=== PATIENT | male | born 1965 | race African-American/Black ===

== ENCOUNTER 2019-04-21 13:47 | Emergency (ER) | payer BC ==
[2019-04-21] MEDS ORDERED: Bacitracin Oint 1 GM U/D Packet TOP ONE (13:48)
[2019-04-21] MEDS ORDERED: Diphtheria,Pertussis(Acell),Tetanus Vaccine 0.5 ML Syringe IM ONE (13:48)
--- NOTE | 2019-04-21 14:55 | EDM.PDOC ---
ED HPI GENERAL MEDICAL PROBLEM - General Chief Complaint: Laceration Stated Complaint: FINGER LACERATION Time Seen by Provider: 04/21/19 13:57 Source of Information: Reports: Patient History Limitations: Reports: No Limitations - History of Present Illness INITIAL COMMENTS - FREE TEXT/NARRATIVE: HISTORY AND PHYSICAL: History of present illness: Patient is a 54-year-old male who presents to the emergency room with complaints of a laceration to the webspace between his thumb and index finger on his right hand. He states he cut his hand using a razor blade. Unsure of his last tetanus update. Denies any other extremity involvement. Review of systems: As per history of present illness and below otherwise all systems reviewed and negative. Past medical history: As per history of present illness and as reviewed below otherwise noncontributory. Surgical history: As per history of present illness and as reviewed below otherwise noncontributory. Social history: See social history for further information Family history: As per history of present illness and as reviewed below otherwise noncontributory. Physical exam: General: Developed and well-nourished 54-year-old -[place] male. Alert and oriented. Nontoxic-appearing and in no acute distress. HEENT: Atraumatic, normocephalic, pupils equal and reactive bilaterally, negative for conjunctival pallor or scleral icterus, mucous membranes moist, trachea midline. No drooling or trismus noted. No meningeal signs. No hot potato voice noted. Lungs: Clear to auscultation, breath sounds equal bilaterally. Heart: S1S2, regular rate and rhythm without overt murmur Abdomen: Soft, nondistended, nontender. Skin: 1.5 x 1.7 5 "V shaped" laceration to the webspace of the first and second digit on the right hand. Intact, warm, dry. No lesions or rashes noted. Extremities: See skin for details, has no tendon/neuro involvement, moves all extremities per self without difficulty or deficits, negative for cords or calf pain. Neurovascular unremarkable. Neuro: Awake, alert, oriented. Cranial nerves II through XII unremarkable. Cerebellum unremarkable. Motor and sensory unremarkable throughout. Exam nonfocal. Notes: 1% lidocaine was used to anesthetize the area. Wound wash and chlorhexidine were used for cleansing and thorough irrigation. Usual and customary procedures were followed for suture placement. 4-0 nylon, #3 interrupted sutures were placed. Patient tolerated well. Tetanus was updated. Bacitracin nonstick dressing applied. Supportive care measures were reviewed and discussed. Voices understanding and is agreeable to plan of care. Denies any further questions or concerns at this time. Diagnostics: None Therapeutics: 1% lidocaine, bacitracin, tetanus Prescription: None Impression: Laceration Plan: 1. Keep the area clean and dry. Continue to monitor for signs of infection. Sutures to be removed in 7-10 days. 2. Tylenol and/or ibuprofen as needed for pain management. 3. Please follow-up with your primary care provider in the next 1-2 days. Return to the ED as needed and as discussed. Definitive disposition and diagnosis as appropriate pending reevaluation and review of above. laceration Pain Score (Numeric/FACES): 4 - Related Data Allergies Allergy/AdvReac Type Severity Reaction Status Date / Time No Known Allergies Allergy Verified 04/21/19 14:07 Home Meds: Home Meds . [No Known Home Meds] 03/25/14 [History] Past Medical History - Past Health History Medical/Surgical History: Denies Medical/Surgical History HEENT History: Reports: None Cardiovascular History: Reports: None Respiratory History: Reports: None Gastrointestinal History: Reports: None Genitourinary History: Reports: None Musculoskeletal History: Reports: None Neurological History: Reports: None Psychiatric History: Reports: None Endocrine/Metabolic History: Reports: None Hematologic History: Reports: None Oncologic (Cancer) History: Reports: None Dermatologic History: Reports: Psoriasis - Infectious Disease History Infectious Disease History: Reports: Chicken Pox Social & Family History - Family History Family Medical History: Noncontributory - Tobacco Use Smoking Status *Q: Current Every Day Smoker Years of Tobacco use: 2 Packs/Tins Daily: 0.5 - Caffeine Use Caffeine Use: Reports: Soda - Alcohol Use Days Per Week of Alcohol Use: 4 Number of Drinks Per Day: 3 Total Drinks Per Week: 12 - Recreational Drug Use Recreational Drug Use: No ED ROS GENERAL - Review of Systems Review Of Systems: Comprehensive ROS is negative, except as noted in HPI. ED EXAM, SKIN/RASH Exam: See Below (See dictation) ED SKIN PROCEDURES - Laceration/Wound Repair Right hand Appearance: Subcutaneous, Linear, Clean Distal NVT: Neuro & Vascular Intact, No Tendon Injury Anesthetic Type: Local Local Anesthesia - Lidocaine (Xylocaine): 1% Plain Local Anesthetic Volume: 4cc Skin Prep: Chlorhexidine (Hibiciens), Saline, Sterile Drape Saline Irrigation (cc's): 50 Exploration/Debridement/Repair: Wound Explored, In a Bloodless Field, Explored to Base, No Foreign Material Found Closed with: Sutures Lac/Wound length In cm: 1.5 (1.5 x 1.75cm) Suture Size: 4-0 # of Sutures: 3 Suture Type: Nylon, Interrupted, Simple Drain Placement: No Sterile Dressing Applied: Provider Tetanus Status Addressed: Yes Complications: No Course - Vital Signs Last Recorded V/S: Last Vital Signs Temp 97 F 04/21/19 14:05 Pulse 76 04/21/19 14:05 Resp 18 04/21/19 14:05 BP 156/93 H 04/21/19 14:05 Pulse Ox 96 04/21/19 14:05 - Orders/Labs/Meds Orders: Active Orders 24 hr Category Date Time Status Vaccines to be Administered [RC] PER UNIT ROUTINE Care 04/21/19 13:48 Active Meds: Medications Discontinued Medications Generic Name Dose Route Start Last Admin Trade Name Freq PRN Reason Stop Dose Admin Bacitracin 1 dose 04/21/19 13:48 Bacitracin Oint 1 Gm TOP 04/21/19 13:49 ONETIME ONE Diphtheria/Tetanus/Acell Pertussis 0.5 ml 04/21/19 13:48 Adacel IM 04/21/19 13:49 .ONCE ONE Lidocaine HCl 5 ml 04/21/19 13:48 Xylocaine-Mpf 1% INJECT 04/21/19 13:49 ONETIME ONE Departure - Departure Time of Disposition: 14:54 Disposition: Home, Self-Care 01 Clinical Impression: Laceration - Discharge Information Instructions: Laceration Care, Adult, [id number] Referrals: PCP,None [Primary Care Provider] - Forms: ED Department Discharge Additional Instructions: The following information is given to patients seen in the emergency department who are being discharged to home. This information is to outline your options for follow-up care. We provide all patients seen in our emergency department with a follow-up referral. The need for follow-up, as well as the timing and circumstances, are variable depending upon the specifics of your emergency department visit. If you don't have a primary care physician on staff, we will provide you with a referral. We always advise you to contact your personal physician following an emergency department visit to inform them of the circumstance of the visit and for follow-up with them and/or the need for any referrals to a consulting specialist. The emergency department will also refer you to a specialist when appropriate. This referral assures that you have the opportunity for follow-up care with a specialist. All of these measure are taken in an effort to provide you with optimal care, which includes your follow-up. Under all circumstances we always encourage you to contact your private physician who remains a resource for coordinating your care. When calling for follow-up care, please make the office aware that this follow-up is from your recent emergency room visit. If for any reason you are refused follow-up, please contact the [facility] Emergency Department at and asked to speak to the emergency department charge nurse. [facility] [address] [place] [id number] [facility] [address] [place] [address] 1. Keep the area clean and dry. Continue to monitor for signs of infection. Sutures to be removed in 7-10 days. 2. Tylenol and/or ibuprofen as needed for pain management. 3. Please follow-up with your primary care provider in the next 1-2 days. Return to the ED as needed and as discussed. Sepsis Event Note - Evaluation Sepsis Screening Result: No Definite Risk - Focused Exam Vital Signs: Vital Signs Temp Pulse Resp BP Pulse Ox 04/21/19 14:05 97 F 76 18 156/93 H 96 Date Exam was Performed: 04/21/19 Time Exam was Performed: 14:57 - My Orders Last 24 Hours: My Active Orders 04/21/19 13:48 Vaccines to be Administered [RC] PER UNIT ROUTINE - Assessment/Plan Last 24 Hours: My Active Orders 04/21/19 13:48 Vaccines to be Administered [RC] PER UNIT ROUTINE
[2019-04-21 15:55] VITALS: BP 127/94; PULSE 71
== END 2019-04-21 15:17 | disposition home or self-care (01) ==
LOC: MW.ED 13:47
DX: S61.411A Laceration without foreign body of right hand, initial encounter (principal); Z23 Encounter for immunization; F17.210 Nicotine dependence, cigarettes, uncomplicated; W26.8XXA Contact with other sharp object(s), not elsewhere classified, initial encounter
CPT/HCPCS: 12001; 90471; 90715; 99282; J2001

== ENCOUNTER 2019-04-30 10:21 | Emergency (ER) | payer BC ==
[2019-04-30 10:32] VITALS: BP 155/86; PULSE 80
== END 2019-04-30 10:34 | disposition left against medical advice (07) ==
LOC: MW.ED 10:21
DX: Z53.21 Procedure and treatment not carried out due to patient leaving prior to being seen by health care provider (principal)

== ENCOUNTER 2020-07-21 08:32 | Emergency (ER) | payer BC ==
[2020-07-21] MEDS ORDERED: Sodium Chloride 0.9% 10 ML Syringe FLUSH PRN (09:00)
[2020-07-21] MEDS ORDERED: Ondansetron 4 MG/2 ML SDV IVPUSH ONE (09:00)
[2020-07-21] MEDS ORDERED: Sodium Chloride 0.9% 2.5 ML Syringe FLUSH PRN (09:00)
[2020-07-21] MEDS ORDERED: Sodium Chloride 0.9% 1,000 ML IV ONE (09:01)
--- NOTE | 2020-07-21 09:03 | EDM.PDOC ---
ED HPI GENERAL MEDICAL PROBLEM - General Chief Complaint: Gastrointestinal Problem Stated Complaint: VOMITTING Time Seen by Provider: 07/21/20 08:47 - History of Present Illness INITIAL COMMENTS - FREE TEXT/NARRATIVE: History of present illness: [] Patient been sick for about 8 to 10 days. He has nausea and vomiting and unable to eat for the last 3 days. He has vomiting for a week every time he tries to eat or drink anything and notes more than 10 times a day. He has liquid stool for 3 days and it is more than 10 times a day. He has a stool every time he tries to take anything by mouth. He has a cramp just before the stool and otherwise no belly pain. He feels hot and had to use an ice pack to his forehead. He also feels like you are passed out when he stands up because he is weak and dizzy. The patient is not diabetic not treated for blood pressure medicines. He does not take any medicine on a daily basis. He is not working at the time but is active and gets around pretty well during the day. Review of systems: As per history of present illness and below otherwise all systems reviewed and negative. Past medical history: As per history of present illness and as reviewed below otherwise noncontrib utory. Surgical history: As per history of present illness and as reviewed below otherwise noncontributory. Social history: No reported history of drug or alcohol abuse. Family history: As per history of present illness and as reviewed below otherwise noncontributory. Physical exam: Constitutional - well developed, well-nourished and in no acute distress HEENT - normocephalic, no evidence of trauma - external nose and mouth normal - no mass in neck and no JVD - mucosae moist EYES - full EOM, PERRL, no icterus - no evidence of inflammation, injection, or drainage Respiratory - no respiratory distress, equal bilateral expansion, lungs clear to auscultation and no abnormal lung sounds Cardiovascular - Regular Rhythm with S1 and S2 appreciated and no murmur, gallop or rub. GI - abdomen soft without distension or organomegaly - normal bowel sounds - no guard or rebound Musculoskeletal no gross deformity of long bones or joints - no tenderness, swelling or edema Neurologic - Alert and oriented times four - CN II-XII grossly intact - motor sensory and coordination symmetrically normal Psychiatric - appropriate mood and affect with normal thought content Hematologic - No petechiae or purpura - mucosa appropriate color and sclera not pale - normal nail bed color and refill Integument - no rash or evidence of trauma - normal turgor Diagnostics: [] Therapeutics: [] Impression: [] Plan: [] Definitive disposition and diagnosis as appropriate pending reevaluation and review of above. - Related Data Allergies Allergy/AdvReac Type Severity Reaction Status Date / Time No Known Allergies Allergy Verified 04/30/19 10:31 Home Meds: Home Meds Azithromycin 500 mg PO DAILY 3 Days #3 tablet 07/21/20 [Rx] Ondansetron [Zofran ODT] 4 mg PO Q6H PRN #10 tab.dis 07/21/20 [Rx] Past Medical History - Past Health History Medical/Surgical History: Denies Medical/Surgical History HEENT History: Reports: None Cardiovascular History: Reports: None Respiratory History: Reports: None Gastrointestinal History: Reports: None Genitourinary History: Reports: None Musculoskeletal History: Reports: None Neurological History: Reports: None Psychiatric History: Reports: None Endocrine/Metabolic History: Reports: None Hematologic History: Reports: None Oncologic (Cancer) History: Reports: None Dermatologic History: Reports: Psoriasis - Infectious Disease History Infectious Disease History: Reports: Chicken Pox Social & Family History - Family History Family Medical History: No Pertinent Family History - Caffeine Use Caffeine Use: Reports: Soda ED ROS GENERAL - Review of Systems Review Of Systems: Comprehensive ROS is negative, except as noted in HPI. ED EXAM, GENERAL - Physical Exam Exam: See Below Free Text/Narrative:: My physical exam is in the HPI Course - Vital Signs Text/Narrative:: 20 3 AM chest x-ray reveals a few increased markings scattered to the right lower lobe. There is no prior for comparison. Heart border and costophrenic angle as well as diaphragm are clearly visible. This may represent an early developing infiltrate. This is my interpretation and radiology is not reported yet. Last Recorded V/S: Last Vital Signs Temp Pulse 71 07/21/20 11:00 Resp 16 07/21/20 11:00 BP 118/62 07/21/20 11:00 Pulse Ox 100 07/21/20 11:00 - Orders/Labs/Meds Orders: Active Orders 24 hr Category Date Time Status Chest 1V Frontal [CR] Stat Exams 07/21/20 09:00 Taken STOOL CULTURE/SHIGA TOXIN [MREF] Stat Lab 07/21/20 11:20 Received Sodium Chloride 0.9% [Saline Flush] Med 07/21/20 09:00 Active 10 ml FLUSH ASDIRECTED PRN Sodium Chloride 0.9% [Saline Flush] Med 07/21/20 09:00 Active 2.5 ml FLUSH ASDIRECTED PRN Saline Lock Insert [OM.PC] Stat Oth 07/21/20 09:00 Ordered Medication Orders Sodium Chloride (Sodium Chloride 0.9% 10 Ml Syringe) 10 ml FLUSH ASDIRECTED PRN PRN Reason: Keep Vein Open Last Admin: 07/21/20 11:08 Dose: 10 ml Documented by: ZACH Sodium Chloride (Sodium Chloride 0.9% 2.5 Ml Syringe) 2.5 ml FLUSH ASDIRECTED PRN PRN Reason: Keep Vein Open Last Admin: 07/21/20 11:08 Dose: 2.5 ml Documented by: ZACH Labs: Laboratory Tests 07/21/20 07/21/20 Range/Units 08:55 08:55 WBC 7.50 (4.0-11.0) K/uL RBC 5.29 (4.50-5.90) M/uL Hgb 17.6 H (13.0-17.0) g/dL Hct 49.1 (38.0-50.0) % MCV 92.8 (80.0-98.0) fL MCH 33.3 H (27.0-32.0) pg MCHC 35.8 (31.0-37.0) g/dL RDW Std Deviation 43.1 (28.0-62.0) fl RDW Coeff of Daniella 13 (11.0-15.0) % Plt Count 126 L (150-400) K/uL MPV 11.00 (7.40-12.00) fL Neut % (Auto) 75.3 (48.0-80.0) % Lymph % (Auto) 17.5 (16.0-40.0) % Cooke % (Auto) 5.6 (0.0-15.0) % Eos % (Auto) 1.6 (0.0-7.0) % Baso % (Auto) 0.0 (0.0-1.5) % Neut # (Auto) 5.7 (1.4-5.7) K/uL Lymph # (Auto) 1.3 (0.6-2.4) K/uL Cooke # (Auto) 0.4 (0.0-0.8) K/uL Eos # (Auto) 0.1 (0.0-0.7) K/uL Baso # (Auto) 0.0 (0.0-0.1) K/uL Nucleated RBC % 0.0 /100WBC Nucleated RBCs # 0 K/uL Sodium 134 L (136-148) mmol/L Potassium 3.6 (3.5-5.1) mmol/L Chloride 101 (98-107) mmol/L Carbon Dioxide 22.6 (21.0-32.0) mmol/L BUN 13 (7.0-18.0) mg/dL Creatinine 1.4 H (0.8-1.3) mg/dL Est Cr Clr Drug Dosing TNP Estimated GFR (MDRD) > 60.0 ml/min Glucose 111 H (74-106) mg/dL Calcium 8.4 L (8.5-10.1) mg/dL Total Bilirubin 0.9 (0.2-1.0) mg/dL AST 37 (15-37) IU/L ALT 66 H (14-63) IU/L Alkaline Phosphatase 81 (46-116) U/L Total Protein 8.6 H (6.4-8.2) g/dL Albumin 4.0 (3.4-5.0) g/dL Globulin 4.6 H (2.6-4.0) g/dL Albumin/Globulin Ratio 0.9 (0.9-1.6) Lipase 65 L (73-393) U/L Meds: Medications Generic Name Dose Route Start Last Admin Trade Name Freq PRN Reason Stop Dose Admin Sodium Chloride 10 ml 07/21/20 09:00 07/21/20 11:08 Sodium Chloride 0.9% 10 Ml Syringe FLUSH 10 ml ASDIRECTED PRN Administration Keep Vein Open Sodium Chloride 2.5 ml 07/21/20 09:00 07/21/20 11:08 Sodium Chloride 0.9% 2.5 Ml Syringe FLUSH 2.5 ml ASDIRECTED PRN Administration Keep Vein Open Discontinued Medications Generic Name Dose Route Start Last Admin Trade Name Freq PRN Reason Stop Dose Admin Sodium Chloride 1,000 mls @ 1,000 mls/hr 07/21/20 09:01 07/21/20 09:00 Normal Saline IV 07/21/20 10:00 1,000 mls/hr .Bolus ONE Administration Ondansetron HCl 4 mg 07/21/20 09:00 07/21/20 09:09 Ondansetron 4 Mg/2 Ml Sdv IVPUSH 07/21/20 09:01 4 mg ONETIME ONE Administration Departure - Departure Time of Disposition: 11:30 Disposition: Home, Self-Care 01 Condition: Good Clinical Impression: Gastroenteritis - Discharge Information Prescriptions: Azithromycin 500 mg PO DAILY 3 Days #3 tablet Ondansetron [Zofran ODT] 4 mg PO Q6H PRN #10 tab.dis PRN Reason: Nausea Instructions: Colitis Referrals: PCP,None [Primary Care Provider] - Forms: ED Department Discharge Additional Instructions: Increase fluids. Culture results should be back in 2 days. Follow-up with your primary doctor or primary care clinic. Return if worse. [facility] - Primary Care [address] [place] [address] [place] [address] The following information is given to patients seen in the emergency department who are being discharged to home. This information is to outline your options for follow-up care. We provide all patients seen in our emergency department with a follow-up referral. The need for follow-up, as well as the timing and circumstances, are variable depending upon the specifics of your emergency department visit. If you don't have a primary care physician on staff, we will provide you with a referral. We always advise you to contact your personal physician following an emergency department visit to inform them of the circumstance of the visit and for follow-up with them and/or the need for any referrals to a consulting specialist. The emergency department will also refer you to a specialist when appropriate. This referral assures that you have the opportunity for follow-up care with a specialist. All of these measure are taken in an effort to provide you with optimal care, which includes your follow-up. Under all circumstances we always encourage you to contact your private physician who remains a resource for coordinating your care. When calling for follow-up care, please make the office aware that this follow-up is from your recent emergency room visit. If for any reason you are refused follow-up, please contact the [facility] Emergency Department at and asked to speak to the emergency department charge nurse. Sepsis Event Note (ED) - Focused Exam Vital Signs: Vital Signs Pulse Resp BP Pulse Ox 07/21/20 11:00 71 16 118/62 100 - My Orders Last 24 Hours: My Active Orders 07/21/20 09:00 Chest 1V Frontal [CR] Stat Sodium Chloride 0.9% [Saline Flush] 10 ml FLUSH ASDIRECTED PRN Sodium Chloride 0.9% [Saline Flush] 2.5 ml FLUSH ASDIRECTED PRN Saline Lock Insert [OM.PC] Stat 07/21/20 11:20 STOOL CULTURE/SHIGA TOXIN [MREF] Stat - Assessment/Plan Last 24 Hours: My Active Orders 07/21/20 09:00 Chest 1V Frontal [CR] Stat Sodium Chloride 0.9% [Saline Flush] 10 ml FLUSH ASDIRECTED PRN Sodium Chloride 0.9% [Saline Flush] 2.5 ml FLUSH ASDIRECTED PRN Saline Lock Insert [OM.PC] Stat 07/21/20 11:20 STOOL CULTURE/SHIGA TOXIN [MREF] Stat
[2020-07-21 09:28] LABS: BLOOD UREA NITROGEN,BUN 13 mg/dL (7.0-18.0); CARBON DIOXIDE,CO2 22.6 mmol/L (21.0-32.0); CHLORIDE,CL 101 mmol/L (98-107); GLUCOSE RANDOM 111 mg/dL (74-106); LIPASE 65 U/L (73-393); POTASSIUM,K 3.6 mmol/L (3.5-5.1); SODIUM,NA 134 mmol/L (136-148)
[2020-07-21 11:41] VITALS: BP 112/70; PULSE 68
--- NOTE | 2020-07-21 13:37 | CR ---
HISTORY: Productive cough. TECHNIQUE: Portable frontal view the chest. COMPARISON: None. FINDINGS: No airspace consolidation. No pleural effusion or pneumothorax. Pulmonary vasculature and cardiomediastinal silhouette are within normal limits. IMPRESSION: No cardiopulmonary abnormality. Dictated by Sarath Moss MD @ 07/21/2020 1:35:[address] Sarath Moss @ Jul 21 2020 1:35PM
== END 2020-07-21 11:40 | disposition home or self-care (01) ==
LOC: MW.ED 08:32
DX: K52.9 Noninfective gastroenteritis and colitis, unspecified (principal)
CPT/HCPCS: 36415; 71045; 80053; 83690; 85025; 87045; 87046; 87449; 87899; 96361; 96374; 99284; J2405; J7030; 99283

== ENCOUNTER 2021-04-30 17:29 | Emergency (ER) | payer BC ==
[2021-04-30] MEDS: Ketorolac 60 MG/2 ML SDV IM ONE (18:56)
[2021-04-30 19:24] VITALS: BP 142/65; PULSE 78
== END 2021-04-30 19:22 | disposition home or self-care (01) ==
LOC: MW.ED 17:29
DX: H66.93 Otitis media, unspecified, bilateral (principal); R51.9 Headache, unspecified
CPT/HCPCS: 70450; 96372; 99284; J1885; 99283

== ENCOUNTER 2021-09-21 11:41 | Emergency (ER) | payer BC ==
[2021-09-21] MEDS: Sodium Chloride 0.9% 2.5 ML Syringe FLUSH PRN ×2 (12:17→14:06)
[2021-09-21] MEDS: Sodium Chloride 0.9% 10 ML Syringe FLUSH PRN ×2 (12:18→14:06)
[2021-09-21 12:49] LABS: CARBON DIOXIDE,CO2 27.2 mmol/L (21.0-32.0); POTASSIUM,K 3.4 mmol/L (3.5-5.1)
[2021-09-21 12:54] LABS: CORONAVIRUS COVID-19 NAA NEGATIVE (NEGATIVE); INFLUENZA A NAA NEGATIVE (NEGATIVE); INFLUENZA B NAA NEGATIVE (NEGATIVE)
[2021-09-21] MEDS ORDERED: Sodium Chloride 0.9% 1,000 ML IV ONE (13:02)
[2021-09-21] MEDS ORDERED: Iopamidol 755 MG/ML 500 ML Multipack Bottle IVPUSH STA (14:09)
[2021-09-21] MEDS ORDERED: Azithromycin 250 MG Tab PO STA (14:31)
[2021-09-21] MEDS ORDERED: Potassium Chloride 20 MEQ Tab.ER PO ONE (14:31)
[2021-09-21] MEDS ORDERED: methylPREDNISolone Sodium Succinate 125 MG/2 ML SDV IVPUSH ONE (14:41)
[2021-09-21 15:44] VITALS: BP 153/93; PULSE 56
== END 2021-09-21 15:46 | disposition home or self-care (01) ==
LOC: MW.ED 11:41
DX: J40 Bronchitis, not specified as acute or chronic (principal); Z20.822 Contact with and (suspected) exposure to COVID-19
CPT/HCPCS: 0240U; 36415; 71045; 71275; 80053; 83880; 84484; 85025; 85379; 87651; 93005; 96361; 96374; 99285; A9270; J2930; J3490; J7030; Q9967; 99284

== ENCOUNTER 2021-10-04 10:11 | Emergency (ER) | payer BC ==
[2021-10-04 11:15] VITALS: BP 123/77; PULSE 79
== END 2021-10-04 11:41 | disposition home or self-care (01) ==
LOC: MW.ED 10:11
DX: M25.571 Pain in right ankle and joints of right foot (principal); Z79.899 Other long term (current) drug therapy
CPT/HCPCS: 73610-26-RT; 73610-RT; 99283

== ENCOUNTER 2022-01-21 10:05 | Emergency (ER) | payer BC ==
[2022-01-21 12:01] LABS: CORONAVIRUS COVID-19 NAA NEGATIVE (NEGATIVE); INFLUENZA A NAA NEGATIVE (NEGATIVE); INFLUENZA B NAA NEGATIVE (NEGATIVE)
[2022-01-21] MEDS ORDERED: Albuterol/Ipratropium 3.0-0.5 MG/3 ML Neb Soln ONE (13:11)
[2022-01-21] MEDS ORDERED: Albuterol/Ipratropium 3.0-0.5 MG/3 ML Neb Soln NEB ONE (13:15)
[2022-01-21 14:16] LABS: CARBON DIOXIDE,CO2 22.8 mmol/L (21.0-32.0); POTASSIUM,K 3.6 mmol/L (3.5-5.1)
[2022-01-21 14:58] VITALS: BP 139/87; PULSE 84
== END 2022-01-21 14:58 | disposition home or self-care (01) ==
LOC: MW.ED 10:05
DX: J98.8 Other specified respiratory disorders (principal); R06.2 Wheezing; Z72.0 Tobacco use; Z20.822 Contact with and (suspected) exposure to COVID-19
CPT/HCPCS: 0240U; 36415; 71046; 80053; 85007; 85027; 94640; 99284; J7620-GY

== ENCOUNTER 2022-02-18 16:13 | Emergency (ER) | payer BC ==
[2022-02-18 16:46] VITALS: BP 166/96
[2022-02-18] MEDS ORDERED: Acetaminophen/HYDROcodone 325-5 MG Tab PO ONE (17:29)
[2022-02-18 17:51] VITALS: PULSE 83
== END 2022-02-18 17:51 | disposition home or self-care (01) ==
LOC: MW.ED 16:13
DX: M25.571 Pain in right ankle and joints of right foot (principal); Z72.0 Tobacco use
CPT/HCPCS: 99283; A9270

== ENCOUNTER 2022-05-21 07:14 | Emergency (ER) | payer BC ==
[2022-05-21 07:36] VITALS: BP 128/83; PULSE 71
[2022-05-21] MEDS ORDERED: Acetaminophen/oxyCODONE 325-5 MG Tab PO ONE (07:38)
[2022-05-21] MEDS ORDERED: Ketorolac 30 MG/ML SDV IM ONE (07:38)
[2022-05-21] MEDS ORDERED: predniSONE 20 MG Tab PO ONE (07:38)
== END 2022-05-21 08:27 | disposition home or self-care (01) ==
LOC: MW.ED 07:14
DX: M10.9 Gout, unspecified (principal); Z87.891 Personal history of nicotine dependence
CPT/HCPCS: 73130; 96372; 99283; A9270; J1885

== ENCOUNTER 2022-05-30 21:16 | Emergency (ER) | payer BC, OTHER ==
[2022-05-30 21:51] VITALS: BP 105/63; PULSE 61
== END 2022-05-30 21:51 | disposition home or self-care (01) ==
LOC: MW.ED 21:16
DX: Z02.89 Encounter for other administrative examinations (principal)
CPT/HCPCS: 99282

== ENCOUNTER 2022-07-07 20:11 | Emergency (ER) | payer BC ==
[2022-07-07] MEDS ORDERED: Lidocaine 1% PF 2 ML SDV INJECT ONE (20:18)
[2022-07-07] MEDS ORDERED: Acetaminophen/HYDROcodone 325-5 MG Tab PO ONE (20:34)
[2022-07-07] MEDS ORDERED: Amoxicillin/Clavulanate K 875-125 MG Tab PO ONE (20:34)
[2022-07-07 21:05] VITALS: BP 137/87; PULSE 77
== END 2022-07-07 20:46 | disposition home or self-care (01) ==
LOC: MW.ED 20:11
DX: S01.511A Laceration without foreign body of lip, initial encounter (principal); W01.0XXA Fall on same level from slipping, tripping and stumbling without subsequent striking against object, initial encounter
CPT/HCPCS: 12011; 99282; A9270; 99283; J3490

== ENCOUNTER 2022-07-21 10:43 | Emergency (ER) | payer BC ==
[2022-07-21] MEDS ORDERED: Acetaminophen/HYDROcodone 325-5 MG Tab PO ONE ×2 (12:23→14:56)
[2022-07-21 15:18] VITALS: BP 139/77; PULSE 71
== END 2022-07-21 15:17 | disposition home or self-care (01) ==
LOC: MW.ED 10:43
DX: M10.9 Gout, unspecified (principal)
CPT/HCPCS: 93971; 99283; A9270

== ENCOUNTER 2022-08-08 10:06 | Emergency (ER) | payer BC ==
[2022-08-08] MEDS ORDERED: Ondansetron 4 MG/2 ML SDV IVPUSH STA (11:11)
[2022-08-08] MEDS ORDERED: Sodium Chloride 0.9% 1,000 ML IV STA ×2 (11:11→12:02)
[2022-08-08 11:20] LABS: BASOPHILS PERCENT AUTO 0.2 % (0.0-1.5); EOSINOPHILS ABSOLUTE AUTO 0.1 K/uL (0.0-0.7); EOSINOPHILS PERCENT AUTO 1.9 % (0.0-7.0); HEMATOCRIT 41.8 % (38.0-50.0); HEMOGLOBIN 14.8 g/dL (13.0-17.0); LYMPHOCYTES ABSOLUTE AUTO 0.6 K/uL (0.6-2.4); LYMPHOCYTES PERCENT AUTO 11.2 % (16.0-40.0); MEAN CORPUSCULAR HGB CONC 35.4 g/dL (31.0-37.0); MEAN CORPUSCULAR VOLUME 90.5 fL (80.0-98.0); MONOCYTES ABSOLUTE AUTO 0.5 K/uL (0.0-0.8); MONOCYTES PERCENT AUTO 9.1 % (0.0-15.0); NEUTROPHILS ABSOLUTE AUTO 4.1 K/uL (1.4-5.7); NEUTROPHILS PERCENT AUTO 77.6 % (48.0-80.0); NRBC ABSOLUTE 0 K/uL; PLATELET COUNT,PLT 114 K/uL (150-400); RED BLOOD CELL COUNT 4.62 M/uL (4.50-5.90); WHITE BLOOD CELL COUNT,WBC 5.25 K/uL (4.0-11.0)
[2022-08-08 11:40] LABS: A/G RATIO 0.9 (0.9-1.6); ALBUMIN 3.7 g/dL (3.4-5.0); BILIRUBIN TOTAL 0.9 mg/dL (0.2-1.0); CALCIUM 8.8 mg/dL (8.5-10.1); CARBON DIOXIDE,CO2 25.3 mmol/L (21.0-32.0); EST CRCL DRUG DOSING (CG) 87.85 mL/min; POTASSIUM,K 3.4 mmol/L (3.5-5.1); PROTEIN TOTAL,TP 7.6 g/dL (6.4-8.2)
[2022-08-08 13:19] VITALS: BP 151/88; PULSE 67
== END 2022-08-08 13:13 | disposition home or self-care (01) ==
LOC: MW.ED 10:06
DX: A08.4 Viral intestinal infection, unspecified (principal)
CPT/HCPCS: 36415; 80053; 83690; 85025; 96361; 96374; 99284; J2405; J7030

== ENCOUNTER 2023-06-10 15:47 | Emergency (ER) | payer BC ==
[2023-06-10] MEDS: Amoxicillin/Clavulanate K 875-125 MG Tab PO ONE (17:19)
[2023-06-10] MEDS: Ketorolac 30 MG/ML SDV IM ONE (17:20)
[2023-06-10] MEDS: Lidocaine 2% Viscous Solution 15 ML UD PO ONE (17:20)
[2023-06-10] MEDS: Benzocaine 20% Topical Spray UD MUCMEM ONE (17:20)
[2023-06-10 19:11] VITALS: BP 147/82; PULSE 71
== END 2023-06-10 17:54 | disposition home or self-care (01) ==
LOC: MW.ED 15:47
DX: M25.562 Pain in left knee (principal); K08.89 Other specified disorders of teeth and supporting structures; Z75.8 Other problems related to medical facilities and other health care; Z79.899 Other long term (current) drug therapy; Z86.19 Personal history of other infectious and parasitic diseases
CPT/HCPCS: 96372; 99283; A9270; J1885

== ENCOUNTER 2024-02-05 04:27 | Emergency (ER) | payer BC ==
[2024-02-05] MEDS: Ketorolac 30 MG/ML SDV IM ONE (04:50)
[2024-02-05] MEDS: Acetaminophen/HYDROcodone 325-5 MG Tab PO ONE (06:10)
[2024-02-05 06:35] VITALS: BP 148/90; PULSE 60
== END 2024-02-05 06:54 | disposition home or self-care (01) ==
LOC: MW.ED 04:27
DX: M25.531 Pain in right wrist (principal); F17.210 Nicotine dependence, cigarettes, uncomplicated; Z79.899 Other long term (current) drug therapy
CPT/HCPCS: 96372; 99283; A9270; J1885

== ENCOUNTER 2024-03-31 12:09 | Emergency (ER) | payer BC ==
[2024-03-31] MEDS ORDERED: Labetalol 100 MG/20 ML MDV IVPUSH ONE (12:41)
[2024-03-31] MEDS: Acetaminophen 500 MG Tab PO ONE (13:03)
[2024-03-31 13:38] LABS: BASOPHILS ABSOLUTE AUTO 0.02 K/uL (0.00-0.20); BASOPHILS PERCENT AUTO 0.3 % (0.0-1.0); EOSINOPHILS ABSOLUTE AUTO 0.13 K/uL (0.00-0.45); EOSINOPHILS PERCENT AUTO 2.2 % (0.0-6.0); HEMATOCRIT 44.1 % (42.0-52.0); IMMATURE GRAN ABSOLUTE AUTO 0.01 K/uL (0.00-0.05); IMMATURE GRAN PERCENT AUTO 0.2 % (0.0-0.4); LYMPHOCYTES ABSOLUTE AUTO 0.99 K/uL (1.00-4.80); MEAN CORPUSCULAR HEMOGLOBIN 32.7 pg (28.0-32.0); MEAN CORPUSCULAR HGB CONC 36.3 g/dL (32.0-36.0); MEAN PLATELET VOLUME 10.6 fL (9.4-12.4); MONOCYTES ABSOLUTE AUTO 0.62 K/uL (0.00-0.80); MONOCYTES PERCENT AUTO 10.7 % (0.0-8.0); NEUTROPHILS ABSOLUTE AUTO 4.04 K/uL (1.80-7.70); NEUTROPHILS PERCENT AUTO 69.6 % (41.0-71.0); PLATELET COUNT,PLT 134 K/uL (150-400); WHITE BLOOD CELL COUNT,WBC 5.81 K/uL (3.9-11.3)
[2024-03-31 14:12] LABS: A/G RATIO 0.9 (0.9-1.6); ALBUMIN 3.8 g/dL (3.4-5.0); BILIRUBIN TOTAL 0.6 mg/dL (0.2-1.0); CALCIUM 9.6 mg/dL (8.5-10.1); CREATININE 1.2 mg/dL (0.8-1.3); EST CRCL DRUG DOSING (CG) 71.47 mL/min; MAGNESIUM 2.1 mg/dL (1.8-2.4); POTASSIUM,K 3.9 mmol/L (3.5-5.1); PROTEIN TOTAL,TP 7.9 g/dL (6.4-8.2)
[2024-03-31] MEDS: Polyvinyl Alcohol 1.4% Ophth Soln 15 ML Bottle EYEBOTH ONE (15:57)
[2024-03-31 16:07] VITALS: BP 146/89; PULSE 60
== END 2024-03-31 16:06 | disposition home or self-care (01) ==
LOC: MW.ED 12:09
DX: I10 Essential (primary) hypertension (principal); H53.8 Other visual disturbances; R51.9 Headache, unspecified; Z79.899 Other long term (current) drug therapy
CPT/HCPCS: 36415; 70450; 80053; 83735; 85025; 99284; A9270; 99283

== ENCOUNTER 2024-05-17 09:41 | Day surgery (SDC) | payer BC ==
[~2024-05-17 09:41] MED LIST: Lidocaine 2% 5 ML SDV ONE
[2024-05-17] MEDS: Lactated Ringers 1,000 ML IV SCH (10:21)
[2024-05-17] MEDS ORDERED: propofoL 500 MG/50 ML 50 ML ONE (10:30)
[2024-05-17] MEDS ORDERED: Propofol 200 MG/20 ML SDV ONE (10:45)
[2024-05-17 11:31] VITALS: PULSE 61
[2024-05-17 12:04] VITALS: BP 138/85
== END 2024-05-17 11:58 | disposition home or self-care (01) ==
LOC: MW.SDS 09:41
PROVIDERS: ATTEND Surgery
DX: Z12.11 Encounter for screening for malignant neoplasm of colon (principal); R19.5 Other fecal abnormalities; D12.3 Benign neoplasm of transverse colon; D12.0 Benign neoplasm of cecum; D12.5 Benign neoplasm of sigmoid colon; I10 Essential (primary) hypertension; L40.9 Psoriasis, unspecified; F17.210 Nicotine dependence, cigarettes, uncomplicated; Z79.899 Other long term (current) drug therapy
CPT/HCPCS: 45380; 45385; J2003; J2704; J7120; 00811

== ENCOUNTER 2025-01-13 22:31 | Emergency (ER) | payer BC ==
[2025-01-13] MEDS: Lidocaine 1% with EPINEPHrine 1:100,000 10 ML MDV INJECT ONE (23:57)
[2025-01-14 00:07] VITALS: BP 152/84; PULSE 65
== END 2025-01-14 00:31 | disposition home or self-care (01) ==
LOC: MW.ED 22:31
DX: S01.01XA Laceration without foreign body of scalp, initial encounter (principal); S01.511A Laceration without foreign body of lip, initial encounter; I10 Essential (primary) hypertension; F17.200 Nicotine dependence, unspecified, uncomplicated; Z79.899 Other long term (current) drug therapy; Z23 Encounter for immunization; W11.XXXA Fall on and from ladder, initial encounter; Y99.0 Civilian activity done for income or pay
CPT/HCPCS: 12001; 12013; 99282; J2004; 12014; 99284

== ENCOUNTER 2025-01-20 16:09 | Emergency (ER) | payer BC ==
[2025-01-20 16:49] VITALS: BP 131/79
[2025-01-20] MEDS: Tetracaine HCl/PF 0.5% 4 ML Bottle EYEBOTH ONE (17:19)
[2025-01-20] MEDS: Fluorescein 1 MG Ophth Strip EYELF ONE (17:19)
[2025-01-20 18:17] VITALS: PULSE 57
== END 2025-01-20 18:17 | disposition home or self-care (01) ==
LOC: MW.ED 16:09
DX: S02.2XXA Fracture of nasal bones, initial encounter for closed fracture (principal); S00.83XA Contusion of other part of head, initial encounter; Z79.899 Other long term (current) drug therapy; I10 Essential (primary) hypertension; Y09 Assault by unspecified means
CPT/HCPCS: 70486; 99284; A9270; J8540; 99283; J3490